=== PATIENT | female | born 1945 | race Caucasian/White ===

== ENCOUNTER 2016-11-17 12:47 | Day surgery (SDC) | payer OTHER, MEDICARE ==
[2016-11-17] MEDS ORDERED: BUPIVACAINE 0.5% 30 ML SDV ONE (13:00)
[2016-11-17] MEDS ORDERED: LIDOCAINE 1% 2 ML INJ ONE (13:33)
[2016-11-17] MEDS ORDERED: CEFAZOLIN 1 GM/DEXTROSE/50 ML BAG IV ONE (13:51)
[2016-11-17] MEDS ORDERED: ceFAZolin 2 GM/DEXTROSE 100 ML IV ONE (14:00)
[2016-11-17] MEDS ORDERED: MIDAZOLAM 2 MG/2 ML VIAL ONE (14:07)
[2016-11-17] MEDS ORDERED: ALBUTEROL HFA ANES ONLY 200 PUFFS/8.5 GM MDI IH ONE ×5 (14:13→14:14)
[2016-11-17] MEDS ORDERED: fentaNYL 100 MCG/2 ML INJ ONE ×4 (14:14→16:55)
[2016-11-17] MEDS ORDERED: PROPOFOL 200 MG/20 ML VIAL ONE (14:15)
[2016-11-17] MEDS ORDERED: LIDOCAINE 2% 5 ML SDV ONE (14:16)
[2016-11-17] MEDS ORDERED: DEXAMETHASONE 4 MG/ML VIAL ONE ×2 (14:16)
[2016-11-17] MEDS ORDERED: ONDANSETRON 4 MG/2 ML VIAL ONE (14:16)
[2016-11-17] MEDS ORDERED: LIDOCAINE 2% JELLY 5 ML TUBE ONE (14:17)
[2016-11-17] MEDS ORDERED: OXYCODONE/APAP 5/325 TAB ONE (17:18)
--- NOTE | 2016-11-18 06:50 | GOP ---
[f rep st] OPERATIVE REPORT DATE OF OPERATION: 11/17/2016 SURGEON: Antonio Herzog MD PREOPERATIVE DIAGNOSIS: 1. Right ankle arthrofibrosis/impingement. 2. Symptomatic retained hardware, left lateral malleolus. 3. Symptomatic retained hardware, left medial malleolus. POSTOPERATIVE DIAGNOSIS: PROCEDURE PERFORMED: 1. Left ankle arthroscopic evaluation and extensive debridement. 2. Hardware removal, left lateral malleolus. 3. Hardware removal, left medial malleolus. 4. Intraoperative use of fluoroscopy. FINDINGS: ESTIMATED BLOOD LOSS: 100 mL. INDICATIONS: Patient is a 71-year-old, who had previously undergone open reduction and internal fix ation of bimalleolar ankle fracture by outside surgeon. Patient had clinical and radiographic evide nce of healed fracture, but was having pain both over her hardware as well as the anterior aspect of the ankle. Based on her persistence of symptoms refractory to nonoperative treatment, she was inte rested in pursuing operative treatment. From an operative standpoint, hardware removal and arthrosc opic debridement was recommended. The patient acknowledged she understood the potential risks, incl uding but not limited to, bleeding, infection, neurovascular damage including loss of limb or limb f unction, inability to remove hardware, pain or limitations despite operative treatment, and anesthet ic risks. She acknowledged she understood the potential risks, planned procedure, postoperative isra n well, and had all questions answered prior to surgery. She gave consent for the operative procedu re. DESCRIPTION OF PROCEDURE: Patient was brought to the operative after IV antibiotics were administer ed. General anesthetic was administered by the anesthesiologist. A tourniquet was placed on the le ft thigh, bump underneath the left hip and shoulder, and the left lower extremity was prepped and dr aped in standard sterile fashion. After elevating the table and dropping the foot for gravity distr action, attention was directed toward the arthroscopic portion of the surgery. The anteromedial por ty was confirmed with needle placement and fluid insufflation. Location of the superficial peronea l nerve was identified and marked. After making a small vertical incision medial to the tibialis an terior and dissecting through the capsule with a fine-tipped hemostat, a 2.7 mm arthroscopic sheath was inserted over a blunt trocar. The arthroscope was introduced. A spinal needle was placed anter olaterally for outflow purposes. Examination of the joint revealed abundant scar tissue. There was some scuffing of the articular surface, but on the whole the articular cartilage was in good shape. A small incision was made where the spinal needle had gone through the skin with dissection throug h the capsule with a fine-tipped hemostat and a blunt trocar. 2.5 mm full-radius shaver was introduc ed. Debridement of the extensive synovitic tissue and scar tissue was performed. The arthroscope w as removed. The portals were closed with 4-0 nylon suture. The foot of the bed was elevated and ta ble lowered. Attention was directed towards hardware removal. The previous fibular incision was utilized. A ileana gitudinal incision was made along the lateral aspect of the fibula. Sharp dissection was carried an terior to the peroneal tendons, taking care to avoid damage to superficial peroneal nerve. The late ral plate and screws were freed of their fibrous overgrowth. The distal screws were removed without any significant difficulty. The proximal 3 cortical screws did not remove with the screwdriver. V arious attempts at use of the broken screw removal devices were tried and were unsuccessful. An att empt at burring out the screws to remove the plate over them was additionally tried and proved unsuc cessful. Finally after a significant amount of time using a plate worker, the plate was cut just di stal to the remaining screws with the distal segment removed and the proximal segment left in place. This portion of the plate was not the part that was bothering the patient, and it was felt that at tempts at removal would significantly risk refracture of the bone and was not warranted. The fascia overlying the peroneal tendons was closed with 2-0 Vicryl suture in interrupted fashion. Subcutane ous tissue closed with 3-0 Vicryl suture in interrupted fashion. Skin closed with skin jeb. Attention was directed medially. A small incision was made along the distal aspect of the medial ma lleolus. Electrocautery unit was utilized for dissection down to the deltoid. Under fluoroscopic g uidance, slits were made in the deltoid ligament overlying the screw and washer. The 2 screws and a ssociated washers were removed without difficulty. The deep tissue was closed with a 2-0 Vicryl sut ure fashion in interrupted fashion. Subcutaneous tissue closed with 3-0 Vicryl suture in interrupte d fashion. Skin closed with 4-0 nylon interrupted vertical mattress sutures. 0.5% Marcaine without epinephrine was injected in the wound sites. The wounds were dressed with sterile Adaptic, 4 x 4, a nd Kerlix. Patient tolerated the procedure well and was taken to the recovery room, extubated, in s table condition postoperatively. All sponge, needle, and instrument counts were reported as being c orrect. COMPLICATIONS: Inability to remove the hardware in its entirety. PLAN: The patient will be discharged home, weightbearing as tolerated in a fracture boot. /[id number]/MODL
== END 2016-11-17 19:00 | disposition home or self-care (01) ==
LOC: FSGY 12:47
PROVIDERS: ATTEND Orthopaedic Surgery Foot and Ankle Surgery
DX: Z47.2 Encounter for removal of internal fixation device (principal); M24.672 Ankylosis, left ankle; Z87.81 Personal history of (healed) traumatic fracture
CPT/HCPCS: J0690; J1100; J2250; J2405; J2704; J3010